=== PATIENT | female | born 1990 | race African-American/Black ===

== ENCOUNTER 2020-10-28 12:18 | Observation (INO) | payer MEDICAID ==
[2020-10-28] MEDS ORDERED: PNV1TABL76 MT (13:32)
== END 2020-10-28 14:00 | disposition home or self-care (01) ==
LOC: 8 EST LDRP 12:18
PROVIDERS: ADMIT Obstetrics & Gynecology; ATTEND Obstetrics & Gynecology
DX: O42.913 Preterm premature rupture of membranes, unspecified as to length of time between rupture and onset of labor, third trimester (principal); Z3A.35 35 weeks gestation of pregnancy
CPT/HCPCS: 59025; G0378; 99281

== ENCOUNTER 2020-11-06 18:44 | Inpatient (IN) | payer MEDICAID ==
[~2020-11-06] VITALS: Ht 170.2 cm; Wt 74.4 kg
[~2020-11-06 18:44] MED LIST: PNV1TABL76 MT
[2020-11-06] MEDS ORDERED: LACTATED RINGERS 1,000 ML IV SCH (20:15)
[2020-11-06] MEDS ORDERED: FERR325T6 PO (21:05)
[2020-11-06] MEDS ORDERED: DEXT 5%/LR + PITOCIN 20UNITS/L 1,000 ML IV SCH (21:15)
[2020-11-06] MEDS ORDERED: CARBOPROST TROMETHAMINE 250 MCG/ML AMPUL IM PRN (21:15)
[2020-11-06] MEDS ORDERED: BUTORPHANOL TARTRATE 2 MG/ML VIAL IV PRN (21:15)
[2020-11-06] MEDS ORDERED: METHYLERGONOVINE MALEATE 0.2 MG/ML IM PRN (21:15)
[2020-11-06] MEDS: TERBUTALINE SULFATE 1MG/ML VIAL SUBCUT PRN ×2 (21:46→23:48)
[2020-11-06] MEDS: LACTATED RINGERS 1,000 ML IV SCH (22:30)
[2020-11-06 22:35] LABS: CLARITY URINE CLEAR (CLEAR); COLOR URINE YELLOW (YELLOW); KETONES URINE NEGATIVE (NEGATIVE); LEUKOCYTE ESTERASE URINE NEGATIVE (NEGATIVE); NITRITE URINE NEGATIVE (NEGATIVE); OCCULT BLOOD URINE NEGATIVE (NEGATIVE); PH URINE 7.5 (4.5-8.0); PROTEIN URINE NEGATIVE (NEGATIVE); SPECIFIC GRAVITY URINE 1.015 (1.005-1.030); UROBILINOGEN URINE 0.2 E.U./dL (0.2-1.0)
[2020-11-06 22:51] LABS: BASOPHILS % 0.2 % (0.0-2.0); EOSINOPHILS % 1.5 % (0.0-5.0); HEMATOCRIT. 26.8 % (36.0-48.0); LYMPHOCYTES % 22.7 % (20.0-50.0); MEAN CORPUSCULAR HEMOGLOBIN 29.7 pg (28.0-32.0); MEAN PLATELET VOLUME 9.5 fl (7.4-10.4); MONOCYTES % 7.9 % (2.0-8.0); NEUTROPHILS % 67.7 % (40.0-76.0); PLATELET 309 x1000/uL (130-400); RED BLOOD CELL COUNT 3.04 mill/uL (4.2-5.4); RED CELL DISTRIBUTION WIDTH 14.1 % (11.6-14.6)
[2020-11-06 23:18] LABS: OPIATES URINE SCREEN NEGATIVE (NEGATIVE)
[2020-11-06 23:19] LABS: *AMPHETAMINES SCREEN URINE NEGATIVE (NEGATIVE); *BARBITURATES SCREEN URINE NEGATIVE (NEGATIVE); *BENZODIAZEPINES SCREEN URINE NEGATIVE (NEGATIVE); *COCAINE SCREEN URINE NEGATIVE (NEGATIVE); CANNABINOID URINE SCREEN NEGATIVE (NEGATIVE); PHENCYCLIDINE URINE SCREEN NEGATIVE (NEGATIVE)
[2020-11-06 23:20] LABS: METHADONE URINE SCREEN NEGATIVE (NEGATIVE)
[2020-11-06 23:21] LABS: HEPATITIS B SURFACE ANTIGEN NEGATIVE
[2020-11-06 23:25] LABS: INR 0.9; PARTIAL THROMBOPLASTIN TIME 29.1 sec (23.4-31.0); PROTHROMBIN TIME 10.1 sec (9.6-11.0)
[2020-11-07] MEDS: LACTATED RINGERS 1,000 ML IV SCH ×2 (05:18→12:25)
[2020-11-07] MEDS ORDERED: CEFAZOLIN SODIUM 1000MG/VIAL ONE (09:46)
[2020-11-07] MEDS ORDERED: PHENYLEPHRINE HCL 10 MG/ML 1ML (IV VIAL) IV ONE (09:46)
[2020-11-07] MEDS ORDERED: OXYTOCIN 10 UNITS/ML 1ML ONE (09:46)
[2020-11-07] MEDS ORDERED: FENTANYL CITRATE/PF 50MCG/ML 2ML VIAL ONE (09:46)
[2020-11-07] MEDS ORDERED: ONDANSETRON HCL 4MG/2ML INJ ONE (09:46)
[2020-11-07] MEDS ORDERED: EPHEDRINE SULFATE 50MG/ML VIAL ONE (09:46)
[2020-11-07] MEDS ORDERED: MORPHINE SULFATE/PF 1MG/ML 10ML AMP ONE (09:46)
[2020-11-07] MEDS ORDERED: CITRIC ACID/SODIUM CITRATE SOLN 30ML UDC PO NR (12:00)
[2020-11-07] MEDS ORDERED: BISACODYL 10MG SUPP PR PRN (13:30)
[2020-11-07] MEDS ORDERED: DIPHENHYDRAMINE 25MG CAPSULE PO PRN (13:30)
[2020-11-07] MEDS ORDERED: HEMORRHOIDAL SUPP PR PRN (13:30)
[2020-11-07] MEDS ORDERED: LANOLIN OINT 7GM TUBE TOP PRN (13:30)
[2020-11-07] MEDS ORDERED: ONDANSETRON HCL 4MG/2ML INJ IV PRN (13:30)
[2020-11-07] MEDS ORDERED: HYDROCODONE/ACETAMINOPHEN 5/325MG TABLET PO PRN (13:30)
[2020-11-07] MEDS ORDERED: KETOROLAC 60MG/2ML VIAL IM ONE (13:43)
[2020-11-07] MEDS ORDERED: DIPHENHYDRAMINE 50MG/ML VIAL ONE (13:43)
[2020-11-07] MEDS: DEXT 5%/LR + PITOCIN 20UNITS/L 1,000 ML IV SCH ×2 (14:40→21:02)
[2020-11-07] MEDS ORDERED: DIPHENHYDRAMINE 50MG/ML VIAL IV PRN (14:45)
[2020-11-07] MEDS ORDERED: BUTORPHANOL TARTRATE 2 MG/ML VIAL IV PRN (14:45)
[2020-11-07] MEDS ORDERED: NALOXONE HCL 0.4 MG/ML 1ML VIAL IV PRN (14:45)
[2020-11-07 16:30] VITALS: BP 99/45
[2020-11-07 16:45] VITALS: BP 98/49
[2020-11-07] MEDS: SIMETHICONE 80MG TABLET CHEW PO SCH ×2 (16:56→21:01)
[2020-11-07] MEDS: MAGNESIUM/ALUMINUM HYDROXIDE/SIMETHICONE 30ML UDC PO SCH ×2 (16:56→21:02)
[2020-11-07 17:30] VITALS: BP 95/50
[2020-11-07 20:00] VITALS: BP 99/55
[2020-11-07] MEDS: DOCUSATE SODIUM 100MG CAPSULE PO SCH (21:01)
[2020-11-07] MEDS: KETOROLAC 30MG/ML VIAL IV SCH (21:01)
[2020-11-08] MEDS: KETOROLAC 30MG/ML VIAL IV SCH (03:52)
[2020-11-08 04:00] VITALS: BP 97/59
[2020-11-08 06:23] LABS: BASOPHILS % 0.3 % (0.0-2.0); EOSINOPHILS % 1.9 % (0.0-5.0); HEMATOCRIT. 23.1 % (36.0-48.0); HEMOGLOBIN. 7.8 g/dL (12.0-16.0); LYMPHOCYTES % 16.5 % (20.0-50.0); MEAN CORPUSCULAR HEMOGLOBIN 29.7 pg (28.0-32.0); MEAN CORPUSCULAR VOLUME 88.1 fL (81.0-99.0); MEAN PLATELET VOLUME 8.6 fl (7.4-10.4); MONOCYTES % 8.4 % (2.0-8.0); NEUTROPHILS % 72.9 % (40.0-76.0); PLATELET 262 x1000/uL (130-400); RED BLOOD CELL COUNT 2.62 mill/uL (4.2-5.4); RED CELL DISTRIBUTION WIDTH 14.4 % (11.6-14.6)
[2020-11-08 08:00] VITALS: BP 93/54
[2020-11-08] MEDS: IBUPROFEN 400MG TABLET PO PRN (08:40)
[2020-11-08] MEDS: FERROUS SULFATE 325MG TABLET PO SCH ×2 (08:40→16:01)
[2020-11-08] MEDS: SIMETHICONE 80MG TABLET CHEW PO SCH ×2 (08:41→21:25)
[2020-11-08] MEDS: PRENATAL VIT/FE FUMARATE/FA TABLET PO SCH (08:41)
[2020-11-08] MEDS: ACETAMINOPHEN WITH CODEINE 300/30MG TABLET PO PRN ×2 (16:00→21:25)
[2020-11-08 17:30] VITALS: BP 98/49
[2020-11-08 20:00] VITALS: BP 97/61
[2020-11-08] MEDS: MAGNESIUM/ALUMINUM HYDROXIDE/SIMETHICONE 30ML UDC PO SCH (21:24)
[2020-11-08] MEDS: DOCUSATE SODIUM 100MG CAPSULE PO SCH (21:25)
[2020-11-09] MEDS: ACETAMINOPHEN WITH CODEINE 300/30MG TABLET PO PRN ×4 (01:26→20:05)
[2020-11-09 04:00] VITALS: BP 111/76
[2020-11-09] MEDS: IBUPROFEN 400MG TABLET PO PRN ×2 (04:31→15:59)
[2020-11-09] MEDS: MAGNESIUM/ALUMINUM HYDROXIDE/SIMETHICONE 30ML UDC PO SCH ×4 (08:33→20:04)
[2020-11-09] MEDS: PRENATAL VIT/FE FUMARATE/FA TABLET PO SCH (08:33)
[2020-11-09] MEDS: FERROUS SULFATE 325MG TABLET PO SCH ×3 (08:33→17:14)
[2020-11-09] MEDS: SIMETHICONE 80MG TABLET CHEW PO SCH ×4 (08:33→20:05)
[2020-11-09 08:51] VITALS: BP 94/52
[2020-11-09 15:50] VITALS: BP 118/60
[2020-11-09 19:30] VITALS: BP 108/70
[2020-11-09] MEDS: DOCUSATE SODIUM 100MG CAPSULE PO SCH (20:05)
[2020-11-10] MEDS ORDERED: IBUP-2028 PO (00:34)
[2020-11-10 04:00] VITALS: BP 114/51
[2020-11-10] MEDS: ACETAMINOPHEN WITH CODEINE 300/30MG TABLET PO PRN (04:38)
[2020-11-10 08:00] VITALS: BP 113/66
[2020-11-10] MEDS: SIMETHICONE 80MG TABLET CHEW PO SCH (09:14)
[2020-11-10] MEDS: PRENATAL VIT/FE FUMARATE/FA TABLET PO SCH (09:14)
[2020-11-10] MEDS: FERROUS SULFATE 325MG TABLET PO SCH (09:14)
[2020-11-10] MEDS: MAGNESIUM/ALUMINUM HYDROXIDE/SIMETHICONE 30ML UDC PO SCH (09:15)
== END 2020-11-10 10:20 | disposition home or self-care (01) | DRG 540 ==
LOC: OBSVTOIN 18:44 → 8 EST LDRP 18:44 → 8EST 11-07 16:20
PROVIDERS: ADMIT Obstetrics & Gynecology; ATTEND Obstetrics & Gynecology
PROC: 10D00Z1 Extraction of Products of Conception, Low, Open Approach (ICD-10-PCS; principal; 2020-11-07)
DX: O34.211 Maternal care for low transverse scar from previous cesarean delivery (principal); D62 Acute posthemorrhagic anemia; O99.03 Anemia complicating the puerperium; Z20.822 Contact with and (suspected) exposure to COVID-19; L29.9 Pruritus, unspecified; O99.73 Diseases of the skin and subcutaneous tissue complicating the puerperium; Z37.0 Single live birth; Z91.018 Allergy to other foods; Z3A.37 37 weeks gestation of pregnancy
CPT/HCPCS: 36415; 76805; 76818; 80305; 81003; 85025; 86592; 86703; 86762; 86850; 86900; 86920; 87340; 87426; 88307; G0378; J0595; J0690; J1200; J1885; J2274; J2370; J2405; J2590; J3010; J3105; J3490; Q0163; A4315